=== PATIENT | male | born 1960 | race Hispanic/Latino ===

== ENCOUNTER 2024-11-02 10:39 | Emergency (ER) | payer OTHER ==
[2024-11-02] MEDS ORDERED: IBUPROFEN 400 MG TAB ONE (11:04)
[2024-11-02] MEDS ORDERED: TRAMADOL HCL 50 MG TAB ONE (11:05)
--- NOTE | 2024-11-02 12:20 | RAD REPORT ---
EXAM:Ankle Right 3 View CLINICAL HISTORY: Ankle pain FINDINGS: Mildly displaced oblique fracture distal fibular metaphysis. Bony density with a sclerotic border adjacent to the tip of the lateral malleolus probably chronic. Borderline widening of the medial clear space equivocal for ligamentous injury. Large calcaneal spur
[2024-11-02] MEDS ORDERED: FENTANYL CITR 100 MCG/2 ML ONE (12:42)
--- NOTE | 2024-11-02 14:21 | ER ---
Nurse's Notes [facility] Name: Endy Archer Age: 64 yrs Sex: Male : 1960 Arrival Date: 11/02/2024 Time: 10:39 Bed 12 Private MD: Diagnosis: Displaced fracture of lateral malleolus of right fibula Presentation: 11/02 10:57 Chief complaint: Patient states: Rolled right ankle yesterday, swelling noted. jl7 Coronavirus screen: At this time, the client does not indicate any symptoms associated with coronavirus-19. Ebola Screen: No symptoms or risks identified at this time. Initial Sepsis Screen: Does the patient meet any 2 criteria? No. Patient's initial sepsis screen is negative. Does the patient have a suspected source of infection? No. Patient's initial sepsis screen is negative. Risk Assessment: Do you want to hurt yourself or someone else? Patient reports no desire to harm self or others. Onset of symptoms was November 01, 2024. 10:57 Method Of Arrival: Wheelchair jl7 10:57 Acuity: BESS 4 jl7 Triage Assessment: 10:58 General: Appears in no apparent distress. uncomfortable, Behavior is calm, cooperative, jl7 appropriate for age. Pain: Complains of pain in right ankle Pain currently is 8 out of 10 on a pain scale. Historical: - Allergies: 10:58 No Known Allergies; jl7 - Home Meds: 10:58 None [Active]; jl7 - PMHx: 10:58 None; jl7 - PSHx: 10:58 Vasectomy; jl7 - Immunization history:: Adult Immunizations not up to date. - Infectious Disease History:: Denies. - Social history:: Smoking status: Patient reports the use of cigarette tobacco products, smokes one-half pack cigarettes per day. - Family history:: not pertinent. - Hospitalizations: : No recent hospitalization is reported. Screenin:21 [facility] ED Fall Risk Assessment (Adult) History of falling in the last 3 months, jl7 including since admission Yes- single mechanical fall (1 pt) Confusion or Disorientation No (0 pts) Intoxicated or Sedated No (0 pts) Impaired Gait No (0 pts) Mobility Assist Device Used Yes (1 pt) Altered Elimination No (0 pt) Score/Fall Risk Level 0 - 2 = Low Risk Oriented to surroundings, Maintained a safe environment. Abuse screen: Denies threats or abuse. Denies injuries from another. Nutritional screening: No deficits noted. Tuberculosis screening: No symptoms or risk factors identified. Assessment: 12:27 Reassessment: Dr. Morrow at bedside discussing results and POC. jl7 Vital Signs: 10:57 BP 106 / 80; Pulse 105; Resp 17; Temp 97; Pulse Ox 96% ; Weight 86.18 kg; Height 5 ft. jl7 8 in. ; Pain 8/10; 10:57 Body Mass Index 28.89 (86.18 kg, 172.72 cm) jl7 10:57 Pain Scale: Adult jl7 ED Course: 10:42 Patient arrived in ED. mr 10:43 Matheus Morrow MD is Attending Physician. rn 10:57 Santana Ramires RN is Primary Nurse. jl7 10:58 Triage completed. jl7 10:58 Arm band placed on right wrist. jl7 11:21 Patient has correct armband on for positive identification. Bed in low position. Call jl7 light in reach. Side rails up X 1. Provided Education on: use if call henley. 11:21 Ice pack to injury. jl7 12:09 XRAY Ankle RIGHT 3 view In Process Unspecified. EDMS 14:00 Orthoglass splint: stirrup splint applied on right leg. jl7 14:49 No provider procedures requiring assistance completed. Patient did not have IV access jl7 during this emergency room visit. Administered Medications: 11:12 Drug: Ibuprofen PO 800 mg PO once Route: PO; jl7 14:50 Follow up: Response: No adverse reaction jl7 11:12 Drug: traMADol PO 50 mg PO once Route: PO; jl7 14:50 Follow up: Response: No adverse reaction jl7 12:57 Drug: fentaNYL (PF) IM 50 mcg IM once Route: IM; Site: right deltoid; jl7 14:50 Follow up: Response: No adverse reaction jl7 Medication: 11:21 VIS not applicable for this client. jl7 Outcome: 14:20 Discharge ordered by . rn 14:50 Discharged to home via wheelchair, with family, jl7 14:50 Condition: stable 14:50 Discharge instructions given to patient, family, Instructed on discharge instructions, follow up and referral plans. medication usage, Demonstrated understanding of instructions, follow-up care, medications, Prescriptions given X 2, 14:50 Patient left the ED. jl7 Signatures: Dispatcher [employer] EDChana Loving, Matheus Gamez MD MD rn Leal, Jahala, RN RN jl7
--- NOTE | 2024-11-02 14:21 | EDPHYS ---
Physician Documentation [facility] Name: Endy Archer Age: 64 yrs Sex: Male : 1960 Arrival Date: 11/02/2024 Time: 10:39 Bed 12 Private MD: ED Physician Matheus Morrow HPI: 11/02 11:02 This 64 yrs old Male presents to ER via Wheelchair with complaints of Fall rn Injury, Ankle Injury. 11:02 The patient presents with an injury, pain, swelling. The complaints affect the right rn ankle. Onset: The symptoms/episode began/occurred yesterday. Associated signs and symptoms: Pertinent positives: swelling, Pertinent negatives: warmth, weakness. Modifying factors: The symptoms are alleviated by sitting, the symptoms are aggravated by movement. Severity of symptoms: At their worst the symptoms were moderate, in the emergency department the symptoms are unchanged. The patient has not experienced similar symptoms in the past. Patient reports walking on rough terrain yesterday, wearing boots, rolled ankle, went to sleep and woke up with increased swelling and pain. Reports pain to medial and lateral ankle, right ankle. No pain or injury to the foot or proximal tib-fib/knee region.. Historical: - Allergies: 10:58 No Known Allergies; jl7 - Home Meds: 10:58 None [Active]; jl7 - PMHx: 10:58 None; jl7 - PSHx: 10:58 Vasectomy; jl7 - Immunization history:: Adult Immunizations not up to date. - Infectious Disease History:: Denies. - Social history:: Smoking status: Patient reports the use of cigarette tobacco products, smokes one-half pack cigarettes per day. - Family history:: not pertinent. - Hospitalizations: : No recent hospitalization is reported. ROS: 11:02 Constitutional: Negative for fever, chills, and weight loss, MS/Extremity: Positive for rn right ankle injury and swelling Skin: Negative for injury, rash, and discoloration, Neuro: Negative for numbness or tingling Exam: 11:02 Constitutional: This is a well developed, well nourished patient who is awake, alert, rn and in no acute distress. MS/ Extremity: Swelling and tenderness to right ankle lateral and medial malleolus. No tenderness or swelling of the foot. No discoloration. No tenderness of tib-fib proximal to the right ankle. Vital Signs: 10:57 BP 106 / 80; Pulse 105; Resp 17; Temp 97; Pulse Ox 96% ; Weight 86.18 kg; Height 5 ft. jl7 8 in. ; Pain 8/10; 10:57 Body Mass Index 28.89 (86.18 kg, 172.72 cm) jl7 10:57 Pain Scale: Adult jl7 MDM: 10:43 Medical Screening Exam initiated rn 14:19 Differential diagnosis: fracture, sprain. Data reviewed: vital signs, nurses notes, rn radiologic studies, plain films, and as a result, I will discharge patient. Counseling: I had a detailed discussion with the patient and/or guardian regarding the historical points, exam findings, and any diagnostic results supporting the discharge/admit diagnosis, radiology results, the need for outpatient follow up, to return to the emergency department if symptoms worsen or persist or if there are any questions or concerns that arise at home. Special discussion: I discussed with the patient/guardian in detail that at this point there is no indication for admission to the hospital. It is understood, however, that if the symptoms persist or worsen the patient needs to return immediately for re-evaluation. 11/02 11:00 Order name: XRAY Ankle RIGHT 3 view; Complete Time: 12:24 rn 11/02 11:01 Order name: Ice pack; Complete Time: 11:12 rn 11/02 12:35 Order name: Splint - Ankle: Orthoglass: Stirrup; Complete Time: 13:07 rn Administered Medications: 11:12 Drug: Ibuprofen PO 800 mg PO once Route: PO; jl7 14:50 Follow up: Response: No adverse reaction jl7 11:12 Drug: traMADol PO 50 mg PO once Route: PO; jl7 14:50 Follow up: Response: No adverse reaction jl7 12:57 Drug: fentaNYL (PF) IM 50 mcg IM once Route: IM; Site: right deltoid; jl7 14:50 Follow up: Response: No adverse reaction jl7 Disposition Summary: 11/02/24 14:20 Discharge Ordered Notes: Location: Home rn Problem: new rn Symptoms: have improved rn Condition: Stable rn Diagnosis - Displaced fracture of lateral malleolus of right fibula rn Followup: rn - With: Private Physician - When: As needed - Reason: Recheck today's complaints, Re-evaluation by your physician Discharge Instructions: - Discharge Summary Sheet rn - Ankle Fracture rn - Cast or Splint Care, Adult rn Forms: - Medication Reconciliation Form rn - Antibiotic furniture removalist's assistant - Prescription Opioid Use rn - Patient Portal Instructions rn - Leadership Thank You Letter rn Prescriptions: - Ibuprofen 800 mg Oral Tablet - take 1 tablet ORAL route every 12 hours As needed take with food; 20 tablet; rn Refills: 0, Product Selection Permitted - Tramadol 50 mg Oral Tablet - take 1 tablet ORAL route every 8 hours as needed; 12 tablet; Refills: 0, rn Product Selection Permitted Signatures: Dispatcher [employer] Matheus Lemons MD MD rn Santana Ramires RN RN jl7
[2024-11-02 20:15] VITALS: BP 106/80; TEMP 97; O2SAT 96
== END 2024-11-02 14:50 | disposition home or self-care (01) ==
LOC: ER 10:39
PROC: 2W3SX1Z Immobilization of Right Foot using Splint (ICD-10-PCS; principal; 2024-11-02)
DX: S82.61XA Displaced fracture of lateral malleolus of right fibula, initial encounter for closed fracture (principal); W18.30XA Fall on same level, unspecified, initial encounter
CPT/HCPCS: 73610; 96372; 99284; 29515; J3010